=== PATIENT | male | born 2000 | race Caucasian/White ===

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

== ENCOUNTER 2020-02-04 08:55 | Emergency (ER) | payer OTHER ==
--- NOTE | 2020-02-04 09:47 | EDM.PDOC ---
ED HPI GENERAL MEDICAL PROBLEM - General Chief Complaint: Head Injury Stated Complaint: HEAD INJURY/FALL Time Seen by Provider: 02/04/20 09:31 Source of Information: Reports: Patient History Limitations: Reports: No Limitations - History of Present Illness INITIAL COMMENTS - FREE TEXT/NARRATIVE: 19-year-old male presents to the ED this morning after tripping and falling basically doing a header into the side of his car. He believes he tripped over a lawn sprinkler. He was dazed but did not lose consciousness. He struck primarily of the left lateral forehead temporal aspect of his scalp. Complaining of mild left-sided neck pain and headache. Was not very nauseated initially but this is somewhat better now. Nuys any injuries to his hands and knees or ribs. Injury occurred about 530 hours this morning. He was on his way to work. His employer asked that he get checked out to make sure that he is fit to return to work. Onset: Today Onset Date: 02/04/20 Onset Time: 05:30 Duration: Hour(s):, Constant, Other Location: Reports: Head (No vomiting), Face (Left upper forehead) Quality: Reports: Ache Severity: Moderate Improves with: Reports: None Worsens with: Reports: Other (Itching the area.) Context: Reports: Trauma (Post head injury after tripping and falling with blunt trauma to the left). Denies: Activity, Exercise, Lifting, Sick Contact, Other ( forehead and temporal scalp) Associated Symptoms: Reports: Headaches, Loss of Appetite, Malaise, Nausea/ Vomiting. 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 Denies: Fever, Chills, Malaise, Weakness, Weight Loss HEENT: Reports: No Symptoms. Denies: Vision Change Respiratory: Reports: No Symptoms Cardiovascular: Reports: No Symptoms Endocrine: Reports: No Symptoms GI/Abdominal: Reports: No Symptoms : Reports: No Symptoms Musculoskeletal: Reports: No Symptoms Skin: Reports: No Symptoms Neurological: Reports: Dizziness, Headache. Denies: Numbness, Paresthesia, Pre- Existing Deficit, Seizure, Syncope, Tingling, Tremors, Trouble Speaking, Difficulty Walking, Weakness, Change in Speech Psychiatric: Reports: No Symptoms Hematologic/Lymphatic: Reports: No Symptoms Immunologic: Reports: No Symptoms ED EXAM, HEAD INJURY - Physical Exam Exam: See Below Exam Limited By: No Limitations General Appearance: Alert, WD/WN, No Apparent Distress, Other (Temperature is 36.6. Heart rate 108 and sinus respiratory 16 with O2 sats of 99% room air. BP 09/25/1975) Head: Scalp Swelling (Does have swelling of the left lateral scalp adjacent to the hairline. Swelling travels to the temporal aspect of his scalp as well.), Scalp Hematoma, Scalp Tenderness Nexus Criteria: No: Posterior, Midline Cervical Tenderness, Evidence of Intoxication, Altered Level of Consciousness, Focal Neurological Deficit, Painful Distraction Injuries Eyes: Bilateral Eye: Normal Inspection, PERRL Ears: Normal TMs Throat/Mouth: Normal Inspection, Normal Lips, Normal Oropharynx Neck: Full Range of Motion, Normal Alignment, Normal Inspection, Muscle Spasm, Paraspinous Muscle Tender (Mild left lower paraspinal musculature. Left side C4 -C7.), Tender Lateral. No: Limited Range of Motion Respiratory: No Respiratory Distress (Left side), Lungs Clear, Normal Breath Sounds, No Accessory Muscle Use, Chest Non-Tender Cardiovascular: Normal Peripheral Pulses, Regular Rate, Rhythm, No Edema, No Gallop, No Murmur, No Rub GI/Abdominal Exam: Normal Bowel Sounds, Soft, Non-Tender, No Organomegaly, No Mass, Pelvis Stable Back Exam: Normal Inspection, Full Range of Motion Extremities: Normal Inspection, Normal Range of Motion, Non-Tender Neurologic: bank manager II-XII nml As Tested, No Motor/Sensory Deficits, Alert, Normal Mood/Affect, Oriented x 3. No: Disoriented x 3 DTR: 2+: Bicep (R), Bicep (L), Patella (R), Patella (L) Skin: Normal Color, Warm/Dry - Yeso Coma Score Best Eye Response (Chyna): (4) Open Spontaneously Best Verbal Response (Chyna): (5) Oriented Best Motor Response (Chyna): (6) Obeys Commands Chyna Total: 15 Course - Vital Signs Last Recorded V/S: Last Vital Signs Temp 36.6 C 02/04/20 09:10 Pulse 108 H 02/04/20 09:10 Resp 16 02/04/20 09:10 BP 130/76 02/04/20 09:10 Pulse Ox 99 02/04/20 09:10 - Orders/Labs/Meds Orders: Active Orders 24 hr Category Date Time Status Peripheral IV Care [RC] . DIRECTED Care 02/04/20 10:53 Active Peripheral IV Insertion Adult [OM.PC] Stat Oth 02/04/20 10:53 Ordered Meds: Medications Discontinued Medications Generic Name Dose Route Start Last Admin Trade Name Freq PRN Reason Stop Dose Admin Gadobenate Dimeglumine 14 ml 02/04/20 12:08 02/04/20 12:32 Multihance IVPUSH 02/04/20 12:09 14 ml ONETIME ONE Administration Sodium Chloride 10 ml 02/04/20 10:53 02/04/20 12:32 Saline Flush FLUSH 10 ml ASDIRECTED PRN Administration Keep Vein Open - Radiology Interpretation Free Text/Narrative:: 19-year-old male presents to the ED for evaluation of closed head injury that occurred secondary to blunt trauma this morning. 0530 hrs. she was getting ready for work and ran outside towards his vehicle. He tripped over a lawn sprinkler and basically went headfirst into the side of his vehicle. He was dazed but did not lose consciousness. He injured primarily the left temporal aspect of his forehead and scalp. Does have some mild pain at the left lower neck but full range of motion. He was nauseated and has a headache. Feels somewhat better after resting and taking some Motrin. Plan CT had to be done. - Re-Assessments/Exams Free Text/Narrative Re-Assessment/Exam: 02/04/20 10:42: CT of the brain is been completed. The reveals no skull fracture. Reveals no intracranial bleeding or mass-effect. Radiologist did identify a 9 mm lesion within the left basal ganglia of unclear etiology. He suggest a MRI of the brain with and without contrast. There happens to be an opening an MRI at this time and the patient is willing to have the procedure performed while here. A saline lock will be placed in preparation for the procedure. 02/04/20 12:38 of the brain has been completed. Was done at the request of the radiologist as he identified a abnormality in the left basal ganglia on CT exam. The low signal abnormalities are noted on the T1 and flair sequences studies within both sides of the basal ganglia. These findings are larger on the left side and are felt to correlate to the CT abnormality. These have the appearance of prominent perivascular spaces which are generally considered a normal variant. There is no abnormal enhancement to suggest other abnormalities. No acute diffusion abnormalities are noted. No other abnormal signal seen within the brain parenchyma. No midline shift or mass-effect is appreciated. She was reassured that the findings are something that he was born with and are considered a normal variant and will not cause any problems in the future. He will need a note to excuse him from the workplace today. Headache he states is tolerable at this time. His Tylenol or Motrin for headache relief. Resume all activities per normal tomorrow Departure - Departure Time of Disposition: 12:40 Disposition: Home, Self-Care 01 Condition: Fair Clinical Impression: Sprain of cervical neck Closed head injury without concussion Qualifiers: Encounter type: initial encounter Qualified Code(s): S09.90XA - Unspecified injury of head, initial encounter - Discharge Information *PRESCRIPTION DRUG MONITORING PROGRAM REVIEWED*: Not Applicable *COPY OF PRESCRIPTION DRUG MONITORING REPORT IN PATIENT PHU: Not Applicable Instructions: Head Injury, Adult, [id number] Referrals: PCP,None [Primary Care Provider] - Forms: ED Department Discharge, ED Return to Work/School Form Additional Instructions: Evaluation in the emergency room today in regards to a trip and fall with significant closed head injury when you did a header into the side of a motor vehicle. No reported loss of consciousness no amnesia for the event. Therefore there was no clinical evidence of a concussion. Significant headache with mild nausea. CT of the head did not reveal any bleeding within the brain or skull fracture. It did suggest an abnormality within the left basal ganglia which is in the midbrain which was of unclear significance. Concern was whether or not there was a small tumor in this area. Was the recommendation of the radiologist that you have a MRI of your brain with and without contrast and this was performed while you were in the ED. Luckily it does not show any tumor. It does show some abnormal spaces around blood vessels in the area which you were born with. This is considered a normal variant. Means nothing in it will not cause any problems in the future. Off work today to rest. May return to work tomorrow with no work restrictions. Motrin or Tylenol are okay for headache pain if needed. Ask your left neck pain to possibly be worse over the next 24-48 is all hours as well due to whiplash-like injury causing strain to the muscles and ligaments. This will usually be back to normal within a week to 10 days Sepsis Event Note (ED) - Evaluation Sepsis Screening Result: No Definite Risk - Focused Exam Vital Signs: Vital Signs Temp Pulse Resp BP Pulse Ox 02/04/20 09:10 36.6 C 108 H 16 130/76 99 - My Orders Last 24 Hours: My Active Orders 02/04/20 10:53 Peripheral IV Care [RC] . DIRECTED Peripheral IV Insertion Adult [OM.PC] Stat - Assessment/Plan Last 24 Hours: My Active Orders 02/04/20 10:53 Peripheral IV Care [RC] . DIRECTED Peripheral IV Insertion Adult [OM.PC] Stat
--- NOTE | 2020-02-04 10:14 | CT ---
Head CT Technique: Multiple axial sections through the brain were obtained. Intravenous contrast was not utilized. Comparison: No prior intracranial imaging is available. Findings: Ventricles along with basal cisterns and sulci over the convexities are within normal limits for the patient's age. Small low density abnormality is noted within the left basal ganglia measuring 9 mm. No other abnormal parenchymal densities are seen. No evidence of intracranial hemorrhage. No midline shift or mass-effect is seen. Bone window settings were reviewed. No acute calvarial finding is seen. Visualized mastoid and visualized paranasal sinuses show nothing acute. Impression: 1. Small abnormality within the left basal ganglia, this is most likely incidental although MRI is strongly recommended to confirm. MRI should be a without and with contrast study. 2. No additional abnormality seen on noncontrast head CT exam. Diagnostic code #3 This report was dictated in MDT
[2020-02-04] MEDS: Sodium Chloride 0.9% 10 ML Syringe FLUSH PRN ×2 (11:43→12:32)
[2020-02-04] MEDS ORDERED: Gadobenate Dimeglumine 529 MG/ML 15 ML SDV IVPUSH ONE (12:08)
--- NOTE | 2020-02-04 12:26 | MR ---
MRI brain (without and with intravenous contrast) Technique: T1, T2, T2 FLAIR and diffusion axial; T1 sagittal; T2 gradient echo and T1 FLAIR coronal; postcontrast T1 axial and T1 FLAIR coronal images were obtained. Comparison: Prior head CT study performed earlier on the same day (9:47 AM) Findings: Several low signal abnormalities are noted on the T1 and FLAIR sequence within both sides of the basal ganglia. These findings are larger on the left side and are felt to correlate to the CT abnormality. These have the appearance of prominent perivascular spaces which are generally considered as a normal variant. There is no abnormal enhancement to suggest other abnormality. No acute diffusion abnormalities are seen. No other abnormal signal seen within the brain parenchyma. No midline shift or mass-effect is appreciated. Ventricles along with basal cisterns and sulci over the convexities are within normal limits for the patient's age. Impression: 1. Previous CT finding is felt to correlate to prominent perivascular spaces on MRI. 2. No additional abnormality is seen on MRI study of the brain. Diagnostic code #2 This report was dictated in MDT
== END 2020-02-04 12:57 | disposition home or self-care (01) ==
LOC: JD.ED 08:55
DX: S13.4XXA Sprain of ligaments of cervical spine, initial encounter (principal); S00.03XA Contusion of scalp, initial encounter; W01.0XXA Fall on same level from slipping, tripping and stumbling without subsequent striking against object, initial encounter
CPT/HCPCS: 70450; 70553; 99283; A9577